=== PATIENT | male | born 1950 | race Caucasian/White ===

== ENCOUNTER 2023-08-02 04:50 | Day surgery (SDC) | payer OTHER ==
[2023-07-28 12:09] VITALS: BMI 27.4
[2023-08-02 12:43] VITALS: TEMP 98.7
[2023-08-02 13:08] VITALS: BP 109/57; PULSE 65; RESP 18
== END 2023-08-02 13:00 | disposition home or self-care (01) ==
LOC: JASU-ENDO 04:50
PROVIDERS: ATTEND Internal Medicine Gastroenterology
PROC: 0DBL8ZX Excision of Transverse Colon, Via Natural or Artificial Opening Endoscopic, Diagnostic (ICD-10-PCS; 2023-08-02)
PROC: 0DBC8ZX Excision of Ileocecal Valve, Via Natural or Artificial Opening Endoscopic, Diagnostic (ICD-10-PCS; principal; 2023-08-02 11:30)
DX: Z51.11 Encounter for antineoplastic chemotherapy (principal); K57.30 Diverticulosis of large intestine without perforation or abscess without bleeding; K64.8 Other hemorrhoids; Z86.010 Personal history of colon polyps
CPT/HCPCS: 88305-TC